=== PATIENT | female | born 1945 | race Caucasian/White ===

== ENCOUNTER 2017-10-25 18:38 | Observation (INO) ==
--- NOTE | 2017-10-25 18:59 | Emergency Department Note ---
Disposition Clinical Impression: Shortness of breath Anemia Qualifiers: Anemia type: iron deficiency Iron deficiency anemia type: unspecified iron deficiency Qualified Code(s): D50.9 - Iron deficiency anemia, unspecified Disposition: Admitted As Inpatient Condition: Undetermined Forms: ED Satisfaction Letter, Work/School Release Time of Disposition: 19:58 (Dr Reeves accepted pt and in the interim we are goinfg to transfuse two units, pros and cons d/c with patient) Weakness HPI - General Chief complaint: ED General Medical Stated complaint: anemia Source: patient, EMS, other Mode of arrival: EMS Limitations: no limitations Nursing Notes Reviewed: Yes Vital Signs Reviewed: Yes - History of Present Illness HPI Narrative: Patient is a pleasant 71-year-old female with past medical history significant for 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 We received a call from the nurse practitioner at the urgent care who stated that at rapid hemoglobin was 7.1 and patient very symptomatic. Patient states that she missed several iron transfusion and was supposed to get one last March and monthly B12 injection. She denies any bleeding from any orifice. She admits eating healthy high protein meat diet. Other than the malaise, fatigue and generalized weakness, patient denies any fever, chills or night sweats. Pt also denies any eye pain or visual disturbances. There is no sore throat, nasal drainages or facial congestion. There is no chest pain, palpitations or racing heart. Pt also denies any cough or chest congestion. There is no abdominal pain, nausea, vomiting or diarrhea. There is no urgency, frequency or dysuria. There is no muskulo-skeletal pain, arthralgia or back pain. Patient also denies any rash, edema or pruritus. There is no neurological manifestations, no headache, no vertigo or focal weakness. The patient also denies any anxiety, depression, hallucinations and has no homicidal or suicidal ideations. There is no polyuria , polydipsia or recent weight change. There is no easy bruising or bleeding. Review of other systems is otherwise negative except above. Pt Subjective Complaint: generalized weakness/fatigue, difficulty ambulating Onset (ago): day(s) Duration: gradually worsening Location: generalized - Related Data Home Medications Medication Instructions Recorded Confirmed Amlodipine [Norvasc] 10 mg PO DAILY 03/02/15 09/17/17 Losartan [Cozaar] 25 mg PO DAILY 03/02/15 09/17/17 Metoprolol [Lopressor] 50 mg PO BID 03/02/15 09/17/17 Zolpidem [Ambien] 10 mg PO HS 03/02/15 09/17/17 Gabapentin [Neurontin] 300 mg PO HS 09/25/16 09/17/17 Previous Rx's Medication Instructions Recorded Cholecalciferol (Vitamin D3) 50,000 unit PO QWEEK #12 capsule 04/09/17 [Vitamin D3] Allergies Allergy/AdvReac Type Severity Reaction Status Date / Time No Known Allergies Allergy Verified 12/01/14 07:48 All systems ED: reviewed and negative except as stated. Review of Systems: As Per HPI Constitutional: Reports: weakness. Denies: fever, chills Eyes: Denies: eye pain, eye discharge ENT ED: Denies: ear pain, throat pain Cardiovascular: Reports: dyspnea on exertion. Denies: chest pain, palpitations Respiratory: Reports: dyspnea. Denies: cough, wheezes Gastrointestinal: Denies: abdominal pain, nausea, vomiting Genitourinary: Denies: urgency, dysuria, frequency Musculoskeletal: Denies: back pain, neck pain, joint swelling Integumentary: Denies: rash, abrasion, lesions Neurological: Reports: weakness. Denies: headache Psychiatric: Denies: anxiety, depression Endocrine: Reports: fatigue Past Medical History - Past Medical History Medical history: Reports: arthritis, asthma, GERD, hypertension, migraine, other Surgical history: Reports: knee replacement (Left), orthopedic, other, other Psychiatric history: Reports: anxiety, depression - Social History Smoking Status: Never smoker Smokeless Tobacco Status: No Alcohol use: Reports: none Drug use: Reports: none Physical Exam - General Limitations: no limitations General appearance: alert, in no apparent distress, other (Ill looking but not toxic) - Head Head exam: atraumatic, normocephalic, normal inspection - Eye Eye exam: Present: normal appearance, PERRL, EOMI - Expanded Eye Exam Pupils: Left: reactive - ENT ENT exam: normal exam, normal oropharynx, mucous membranes moist - Expanded ENT Exam External ear exam: Present: normal external inspection Mouth exam: Present: normal external inspection Teeth exam: Present: normal inspection Throat exam: Present: normal inspection - Neck Neck exam: Present: normal inspection, full ROM, trachea midline - Chest Chest inspection: Present: normal inspection, symmetric chest wall rise - Respiratory Respiratory exam: Present: normal lung sounds bilaterally - Cardiovascular Cardiovascular exam: Present: regular rate, normal rhythm, normal heart sounds - Abdominal Exam Abdominal exam: Present: soft, Non-Tender. Absent: tenderness, distention, guarding, rebound, rigidity - Extremities Exam Extremities exam: Present: normal inspection, full ROM. Absent: tenderness, pedal edema - Expanded Upper Extremity Exam Shoulder exam: Present: normal inspection, full ROM Arm exam: Present: normal inspection, full ROM Elbow exam: Present: normal inspection, full ROM Forearm/Wrist exam: Present: normal inspection, full ROM Hand exam: Present: normal inspection, full ROM Vascular exam: Normal: capillary refill, radial pulse - Expanded Lower Extremity Exam Hip/Pelvis exam: Present: normal inspection, full ROM Upper leg exam: Present: normal inspection, full ROM Knee exam: Present: normal inspection, full ROM Lower leg exam: Present: normal inspection, full ROM Ankle exam: Present: normal inspection, full ROM Foot/toe exam: Present: normal inspection, full ROM Neurovascular/Tendon exam: Absent: motor deficit, sensory deficit, tendon deficit - Back Exam Back exam: Present: normal inspection, full ROM. Absent: tenderness - Neurological Exam Neurological exam: Present: alert, oriented X3 - Expanded Neurological Exam Patient oriented to: Present: person, place, time Coma Scale Eye Opening: Spontaneous Coma Scale Motor Response: Obeys Commands Coma Scale Verbal Response: Oriented Coma Scale Total: 15 - Psychiatric Psychiatric exam: Present: normal affect, normal mood - Skin Skin exam: Present: warm, dry, intact, normal color, pallor Course Vital Signs Temperature 98.0 F 10/25/17 18:40 Pulse Rate 64 10/25/17 18:40 Respiratory Rate 20 10/25/17 18:40 Blood Pressure 115/99 10/25/17 18:40 O2 Sat by Pulse Oximetry 94 10/25/17 18:40 Temperature 98.0 F 10/25/17 18:40 Pulse Rate 61 10/25/17 19:03 Respiratory Rate 17 10/25/17 19:03 Blood Pressure 115/99 10/25/17 19:03 O2 Sat by Pulse Oximetry 94 10/25/17 19:03 Oxygen Delivery Oxygen Delivery Room Air Weakness - Differential Diagnosis Differential Diagnosis: Likely: anemia, hypoglycemia, sepsis/infection, dehydration, medication effect - Medical Records Medical records reviewed: Yes I reviewed the patient's medical records. - Lab Data Lab results reviewed: Yes I reviewed the patient's lab results. Result diagrams: 10/25/17 19:05 10/25/17 19:05 Lab Results 10/25/17 10/25/17 10/25/17 Range/Units 19:05 19:05 19:05 WBC 5.8 (4.3-11.1) K/mcL RBC 2.28 L (3.82-4.97) M/mcL Hgb 6.9 L (11.5-15.4) g/dL Hct 22.2 L (35.3-44.9) % MCV 97.4 (83.0-100.0) fL MCH 30.3 (28.0-33.3) pg MCHC 31.1 L (31.6-35.5) g/dL RDW 17.0 H (11.5-14.5) % Plt Count 408 H (140-400) K/mcL MPV 9.0 L (9.4-12.4) fL Immature Gran % 0.3 (0-4) % Seg Neutrophils % 63.6 % Lymphocytes % 23.8 % Monocytes % 8.4 % Eosinophils % 3.4 % Basophils % 0.5 % Neutrophils # 3.7 (1.6-8.9) K/mcL Lymphocytes # 1.4 (0.6-4.6) K/mcL Monocytes # 0.5 (0.0-1.3) K/mcL Eosinophils # 0.2 (0.0-0.6) K/mcL Basophils # 0.0 (0.0-0.2) K/mcL PT 12.1 (9.4-12.1) Seconds INR 1.1 Sodium 140 (136-145) mEq/L Potassium 4.6 (3.5-5.1) mEq/L Chloride 108 H (98-107) mEq/L Carbon Dioxide 25 (23-29) mEq/L BUN 24 H (8-23) mg/dL Creatinine 1.11 (0.60-1.20) mg/dL Est GFR ( Amer) 59 L (> 60) Est GFR (Non-Af Amer) 49 L (> 60) BUN/Creatinine Ratio 22 (6-26) Glucose 117 H (70-105) mg/dL Calculated Osmolality 295 (280-300) Calcium 8.8 (8.6-10.3) mg/dL Magnesium 2.5 (1.6-2.6) mg/dL Total Bilirubin 0.2 L (0.3-1.0) mg/dL AST 14 (13-39) Units/L ALT 8 (7-52) Units/L Alkaline Phosphatase 81 (34-104) Units/L Creatine Kinase 61 (30-223) Units/L Troponin I < 0.03 (< 0.04) ng/mL Serum Total Protein 6.1 L (6.4-8.9) g/dL Albumin 3.5 (3.5-5.7) g/dL Globulin 2.6 (2.4-3.5) g/dL Albumin/Globulin Ratio 1.3 (1.1-2.2) - Radiology Data Radiology results reviewed: Yes I reviewed the patient's radiology results. - EKG Data EKG attestation: Yes I reviewed and interpreted this EKG.
[2017-10-25 19:13] LABS: Basophils % 0.5 %; Eosinophils # 0.2 K/mcL (0.0-0.6); Eosinophils % 3.4 %; Hematocrit 22.2 % (35.3-44.9); Hemoglobin 6.9 g/dL (11.5-15.4); Immature Granulocytes % 0.3 % (0-4); Lymphocytes # 1.4 K/mcL (0.6-4.6); Lymphocytes % 23.8 %; Mean Corpuscular HGB Conc 31.1 g/dL (31.6-35.5); Mean Corpuscular Hemoglobin 30.3 pg (28.0-33.3); Mean Corpuscular Volume 97.4 fL (83.0-100.0); Monocytes # 0.5 K/mcL (0.0-1.3); Monocytes % 8.4 %; Neutrophils # 3.7 K/mcL (1.6-8.9); Platelet Count 408 K/mcL (140-400); Red Blood Count 2.28 M/mcL (3.82-4.97); Segmented Neutrophils % 63.6 %
[2017-10-25 19:21] LABS: INR 1.1; Prothrombin Time 12.1 Seconds (9.4-12.1)
[2017-10-25 19:33] LABS: Alanine Aminotransferase 8 Units/L (7-52); Albumin 3.5 g/dL (3.5-5.7); Albumin/Globulin Ratio 1.3 (1.1-2.2); Alkaline Phosphatase 81 Units/L (34-104); Aspartate Amino Transferase 14 Units/L (13-39); BUN/Creatinine Ratio 22 (6-26); Bilirubin,Total 0.2 mg/dL (0.3-1.0); Blood Urea Nitrogen 24 mg/dL (8-23); Calcium 8.8 mg/dL (8.6-10.3); Carbon Dioxide 25 mEq/L (23-29); Chloride 108 mEq/L (98-107); Creatine Kinase 61 Units/L (30-223); Globulin 2.6 g/dL (2.4-3.5); Glucose 117 mg/dL (70-105); Magnesium 2.5 mg/dL (1.6-2.6); Osmolality,Calculated 295 (280-300); Potassium 4.6 mEq/L (3.5-5.1); Sodium 140 mEq/L (136-145); Total Protein 6.1 g/dL (6.4-8.9); Troponin I < 0.03 ng/mL (< 0.04); eGFR For African Americans 59 (> 60); eGFR For Non-African Americans 49 (> 60)
[2017-10-25] MEDS ORDERED: Naloxone 0.4 MG/ML INJ IVP PRN ×2 (20:04→20:52)
[2017-10-25 20:51] LABS: Bilirubin,Urine Negative (Negative); Blood,Urine Negative (Negative); Clarity,Urine Clear (Clear); Color,Urine Yellow (Yellow); Glucose,Urine (UA) Normal (Normal); Ketones,Urine Negative (Negative); Leukocyte Esterase,Urine Negative (Negative); Nitrite,Urine Negative (Negative); Protein,Urine Negative (Neg-Trace); Urobilinogen,Urine Normal (Normal)
[2017-10-25] MEDS ORDERED: NON-FORMULARY MEDICATION 1 EACH EACH (Cholecalciferol (Vitamin D3) [Vitamin D3] 50,000 UNI PO SCH (20:52)
[2017-10-25] MEDS ORDERED: Gabapentin 300 MG CAPSULE PO SCH (21:00)
[2017-10-25] MEDS ORDERED: 0.9 % Sodium Chloride 250 ML ONE (22:05)
[2017-10-26] MEDS: *HR* HYDROcodone/Acet 5/325 mg TABLET PO PRN ×2 (06:52→11:06)
[2017-10-26 07:12] LABS: Basophils % 0.7 %; Eosinophils # 0.3 K/mcL (0.0-0.6); Eosinophils % 4.9 %; Hemoglobin 7.2 g/dL (11.5-15.4); Immature Granulocytes % 0.2 % (0-4); Lymphocytes # 1.7 K/mcL (0.6-4.6); Lymphocytes % 28.2 %; Mean Corpuscular HGB Conc 31.3 g/dL (31.6-35.5); Mean Corpuscular Hemoglobin 29.6 pg (28.0-33.3); Mean Corpuscular Volume 94.7 fL (83.0-100.0); Mean Platelet Volume 9.1 fL (9.4-12.4); Monocytes # 0.7 K/mcL (0.0-1.3); Monocytes % 11.1 %; Neutrophils # 3.2 K/mcL (1.6-8.9); Platelet Count 350 K/mcL (140-400); Red Blood Count 2.43 M/mcL (3.82-4.97); Red Cell Distribution Width 18.2 % (11.5-14.5); Segmented Neutrophils % 54.9 %
[2017-10-26 07:31] LABS: Alanine Aminotransferase 6 Units/L (7-52); Albumin/Globulin Ratio 1.3 (1.1-2.2); Alkaline Phosphatase 70 Units/L (34-104); Aspartate Amino Transferase 11 Units/L (13-39); BUN/Creatinine Ratio 22 (6-26); Bilirubin,Total 0.2 mg/dL (0.3-1.0); Blood Urea Nitrogen 18 mg/dL (8-23); Calcium 8.5 mg/dL (8.6-10.3); Carbon Dioxide 25 mEq/L (23-29); Chloride 109 mEq/L (98-107); Globulin 2.4 g/dL (2.4-3.5); Glucose 94 mg/dL (70-105); Osmolality,Calculated 290 (280-300); Potassium 4.1 mEq/L (3.5-5.1); Sodium 139 mEq/L (136-145); Total Protein 5.4 g/dL (6.4-8.9); eGFR For African Americans > 60 (> 60); eGFR For Non-African Americans > 60 (> 60)
[2017-10-26 07:37] LABS: Activated Partial Thrombo Time 32.8 Seconds (26.0-36.0)
[2017-10-26 07:39] LABS: Prothrombin Time 11.1 Seconds (9.4-12.1)
[2017-10-26] MEDS ORDERED: amLODIPine 5 MG TABLET PO SCH (09:00)
--- NOTE | 2017-10-26 10:28 | Internal Med History&Physical ---
Date of Encounter: 10/26/17 Time of Encounter: 09:50 Assessment and Plan (1) Anemia Current visit: Yes Status: Acute Suspect due to B12 and iron deficiency. Anemia testing was ordered. She was also ordered 2 units packed red blood cells but only 1 unit was released because of shortage situation. She states she is now asymptomatic and wishes to be discharged. Qualifiers: Anemia type: iron deficiency Iron deficiency anemia type: unspecified iron deficiency Qualified Code(s): D50.9 - Iron deficiency anemia, unspecified (2) Vitamin B 12 deficiency Current visit: No Status: Chronic B12 level has returned low at 183. She will be given B12 injection. (3) JOSS (iron deficiency anemia) Current visit: No Status: Chronic Iron studies are pending. Qualifiers: Iron deficiency anemia type: other iron deficiency Qualified Code(s): D50.8 - Other iron deficiency anemias (4) Vitamin D deficiency Current visit: No Status: Chronic Vitamin D level has been ordered and is pending. (5) Hypertension Current visit: Yes Status: Chronic Continue Norvasc, Cozaar, and Lopressor Qualifiers: Hypertension type: essential hypertension Qualified Code(s): I10 - Essential (primary) hypertension Internal Medicine - H&P: HPI Chief complaint: Dyspnea and weakness Admitted From: Emergency Dept Plans for Post Hospital Care: Home History of present illness: Ms. Turner is a 71 year old female who came to emergency room stating she had increasing dyspnea and weakness for the past month. She states she has had discomfort in her chest both at rest and on exertion. She went to a local urgent care where blood work showed hemoglobin 7.1. She was referred to emergency room. She was evaluated in emergency room and found to have hemoglobin of 6.9. She was ordered blood transfusions and admitted to [facility] floor for ongoing care needs. She reports chronic anemia present since gastric bypass surgery 2003. She was ordered monthly B12 injections IM but states she has not had one since approximately February 2017 because she could not get to her hematology/ oncology visits. She also reports low iron but has not had iron infusion since fall 2016 due to missed appointments without effort to follow-up. She reports colonoscopy and EGD with were unremarkable approximately 2011 to identify blood loss. She denies internal malignancies. Past Med Surg Social Fam HX - Past Medical History Medical history: arthritis, asthma, GERD, hypertension, migraine, other Additional medical history: anemia, hypoglycemia, ventricular tachacardia and bundel branch block Psychiatric history: anxiety, depression - Past Surgical History Surgical History: knee replacement, orthopedic, other, other Additional surgical history: gastric bypass, lumpectomy, benign. orif left femur, bilat carpel tunnel. Right leg - Social History Smoking Status: Never smoker Smokeless Tobacco Status: No Alcohol use: none Drug use: none Internal Medicine - H&P: Meds Amlodipine [Norvasc] 10 mg PO DAILY 03/02/15 [History] Losartan [Cozaar] 25 mg PO DAILY 03/02/15 [History] Metoprolol [Lopressor] 50 mg PO BID 03/02/15 [History] Zolpidem [Ambien] 10 mg PO HS 03/02/15 [History] Gabapentin [Neurontin] 300 mg PO TID 09/25/16 [History] 3 Allergy/AdvReac Type Severity Reaction Status Date / Time No Known Allergies Allergy Verified 12/01/14 07:48 All Systems PM: A 10-system review of systems was performed and is negative for pertinent findings except as documented above in the HPI. Review of systems: Gen.: She states her weight has decreased approximately 12 pounds in the last 6 months Cardiovascular: She has history of hypertension. She is uncertain if she has had a past PA. She reports negative heart cath on several occasions with her most recent in 2013. She has a cardiac dysrhythmia that she cannot specify details. She reports carotid ultrasound has shown right carotid plaque without surgical intervention done. She denies DVT or pulmonary embolus. Respiratory: She is a lifelong nonsmoker and has no known chronic lung disease GI: She has had cholecystectomy. She had gastric bypass surgery 2003 as per above. She denies disorders of her liver or exocrine pancreas : She denies hematuria dysuria or kidney stones Neurologic: She denies large distribution strokes or seizures. Endocrine: She reports occasional hypoglycemia. She denies diabetes or thyroid disease or hyperlipidemia Hematology/oncology: As per history of present illness Psychiatric: She has anxiety and depression. She thinks she also has PTSD. Muscle skeletal: She has DJD. She has had bilateral carpal tunnel surgeries, bilateral femur fractures, and left total knee replacement. She denies gout. - Constitutional Vitals: Temp Pulse Resp BP Pulse Ox 98.0 F 65 17 133/54 97 10/26/17 04:20 10/26/17 08:26 10/26/17 04:20 10/26/17 08:26 10/26/17 08:26 Exam: Gen.: She is a well-developed overweight female lying in bed who appears in no acute distress HEENT: Head is atraumatic and normocephalic. Eyes: EOMI. There is no scleral icterus. Mouth: Mucosa is moist. Neck: Supple and nontender. There is no thyromegaly or adenopathy noted. Heart: Regular without murmurs gallops or ectopics Lungs: No wheezes or crackles are heard. Abdomen: She has a healed midline abdominal scar. Abdomen is nontender to palpation. Extremities: There is no cyanosis edema or clubbing noted. Dorsalis pedis and posttibial pulses are trace to 1+ palpable bilaterally. Neurologic: Mental status: She is talkative and a good historian. Cranial nerves: Smile is symmetric. Forehead wrinkles bilaterally. Tongue protrudes midline. EOMI. Motor: There is no pronator drift. Cerebellar: Finger to nose is intact bilaterally. Skin: Warm and dry. She has multiple shallow excoriated areas she reports are due to scratching flea bites from having a cat in her house. Internal Med - H&P Results - Labs CBC & Chem 7: 10/26/17 07:00 10/26/17 07:00 Labs: Short CBC 10/26/17 Range/Units 07:00 WBC 5.9 (4.3-11.1) K/mcL Hgb 7.2 L (11.5-15.4) g/dL Hct 23.0 L (35.3-44.9) % Plt Count 350 (140-400) K/mcL Neutrophils # 3.2 (1.6-8.9) K/mcL BMP 10/26/17 07:00 Sodium 139 Potassium 4.1 Chloride 109 H Carbon Dioxide 25 BUN 18 Creatinine 0.83 Glucose 94 Calcium 8.5 L Liver Function 10/26/17 Range/Units 07:00 Total Bilirubin 0.2 L (0.3-1.0) mg/dL AST 11 L (13-39) Units/L ALT 6 L (7-52) Units/L Alkaline Phosphatase 70 (34-104) Units/L Albumin 3.0 L (3.5-5.7) g/dL
[2017-10-26] MEDS ORDERED: Cyanocobalamin (B-12) 1,000 MCG/ML VIAL IM ONE (10:33)
[2017-10-26] MEDS ORDERED: Ondansetron ODT 4 MG TAB.RAPDIS SL ONE (11:01)
--- NOTE | 2017-10-26 11:05 | Discharge Summary ---
Orders not resulted at time of discharge: Pending orders 10/26/17 10:20 Vitamin D 25 Hydroxy Routine Date of Encounter: 10/26/17 Time of Encounter: 09:50 - Discharge Diagnosis (1) Anemia Priority: Primary Status: Acute Qualifiers: Anemia type: iron deficiency Iron deficiency anemia type: unspecified iron deficiency Qualified Code(s): D50.9 - Iron deficiency anemia, unspecified (2) Vitamin B 12 deficiency Priority: Secondary Status: Chronic (3) JOSS (iron deficiency anemia) Priority: Secondary Status: Chronic Qualifiers: Iron deficiency anemia type: other iron deficiency Qualified Code(s): D50.8 - Other iron deficiency anemias (4) Vitamin D deficiency Priority: Secondary Status: Chronic (5) Hypertension Priority: Secondary Status: Chronic Qualifiers: Hypertension type: essential hypertension Qualified Code(s): I10 - Essential (primary) hypertension Hospital course: Ms. Turner is a 71 year old female who came to emergency room stating she had increasing dyspnea and weakness for the past month. She states she has had discomfort in her chest both at rest and on exertion. She went to a local urgent care where blood work showed hemoglobin 7.1. She was referred to emergency room. She was evaluated in emergency room and found to have hemoglobin of 6.9. She was ordered blood transfusions and admitted to [facility] for ongoing care needs. Initial orders were written by the emergency room physician. I saw her on October 26 and performed a history physical and discharge. She was ordered 2 units packed red blood cells by emergency room. Only one unit was released because of shortage of her blood type. She tolerated the 1 unit without difficulty and was asymptomatic by the time I saw her. She reported she was able to ambulate to the bathroom without symptoms. B12 level returned low at 183 and she was given a B12 injection. Iron studies and vitamin D level are pending at time of discharge. Her PCP and/or chairperson anesthesiology/oncologist can follow-up on this. She reports she is scheduled to see Dr. Panda tomorrow. She will follow with her PCP within 1 week. - Time Spent with Patient Total time spent providing and/or coordinating discharge services: - Discharge Medications Home Medications: Amlodipine [Norvasc] 10 mg PO DAILY 03/02/15 [History] Losartan [Cozaar] 25 mg PO DAILY 03/02/15 [History] Metoprolol [Lopressor] 50 mg PO BID 03/02/15 [History] Zolpidem [Ambien] 10 mg PO HS 03/02/15 [History] Gabapentin [Neurontin] 300 mg PO TID 09/25/16 [History] Allergies/Adverse Reactions: 3 Allergy/AdvReac Type Severity Reaction Status Date / Time No Known Allergies Allergy Verified 12/01/14 07:48 Date of admission: 10/25/17 20:09 Primary care physician: Elva Brown - Constitutional Vitals: Temp Pulse Resp BP Pulse Ox 98.0 F 65 17 133/54 97 10/26/17 04:20 10/26/17 08:26 10/26/17 04:20 10/26/17 08:26 10/26/17 08:26 - Patient Status Disposition: Home, Self-Care Condition: Undetermined - Discharge Instructions Follow Up With: Elva Brown, [facility] [Primary Care Provider] - 1 week - Diet and Activity Activity: resume usual activities as tolerated Diet: advance to your usual diet
[2017-10-26 11:10] VITALS: BP 112/55
[2017-10-26 11:39] LABS: Ferritin 9 ng/mL (10-120); Iron < 10 mcg/dL (50-170); Transferrin 296 mg/dL (203-362)
--- NOTE | 2017-10-26 18:48 | Electrocardiograph Report ---
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
== END 2017-10-26 13:02 | disposition home or self-care (01) ==
LOC: EMEROOPIK 18:38 → INPPIK 18:38
PROVIDERS: ADMIT Internal Medicine; ATTEND Internal Medicine

== ENCOUNTER 2018-01-24 19:52 | Inpatient (IN) ==
[2018-01-24 20:55] LABS: Basophils % 0.5 %; Eosinophils # 0.2 K/mcL (0.0-0.6); Eosinophils % 5.4 %; Hematocrit 18.2 % (35.3-44.9); Immature Granulocytes % 0.3 % (0-4); Lymphocytes # 1.3 K/mcL (0.6-4.6); Lymphocytes % 32.8 %; Mean Corpuscular HGB Conc 26.9 g/dL (31.6-35.5); Mean Corpuscular Hemoglobin 20.9 pg (28.0-33.3); Mean Corpuscular Volume 77.8 fL (83.0-100.0); Monocytes # 0.5 K/mcL (0.0-1.3); Monocytes % 12.3 %; Neutrophils # 1.9 K/mcL (1.6-8.9); Nucleated Red Blood Cells 0.5 /100 WBC (0); Platelet Count 334 K/mcL (140-400); Red Blood Count 2.34 M/mcL (3.82-4.97); Red Cell Distribution Width 18.5 % (11.5-14.5); Segmented Neutrophils % 48.7 %
[2018-01-24 20:57] LABS: Hemoglobin 4.9 g/dL (11.5-15.4)
[2018-01-24 21:02] LABS: INR 1.1; Prothrombin Time 12.8 Seconds (9.4-12.1)
[2018-01-24 21:05] LABS: Activated Partial Thrombo Time 33.9 Seconds (26.0-36.0)
[2018-01-24 21:09] LABS: Anisocytosis 1+ (Not Present); Hypochromasia Present (Not Present)
[2018-01-24 21:10] LABS: Microcytosis Present (Not Present); Polychromasia 1+ (Not Present)
[2018-01-24 21:11] LABS: Platelet Estimate Normal (Normal)
[2018-01-24 21:13] LABS: BUN/Creatinine Ratio 21 (6-26); Blood Urea Nitrogen 21 mg/dL (8-23); Calcium 8.7 mg/dL (8.6-10.3); Carbon Dioxide 23 mEq/L (23-29); Chloride 109 mEq/L (98-107); Glucose 100 mg/dL (70-105); Osmolality,Calculated 291 (280-300); Potassium 4.3 mEq/L (3.5-5.1); Sodium 139 mEq/L (136-145); eGFR For Non-African Americans 54 (> 60)
--- NOTE | 2018-01-24 21:22 | Emergency Department Note ---
Disposition Clinical Impression: Dyspnea on exertion Anemia Qualifiers: Anemia type: unspecified type Qualified Code(s): D64.9 - Anemia, unspecified Disposition: Admitted As Inpatient Condition: Fair Referrals: Elva Brown CNP [Primary Care Provider] - Forms: ED Satisfaction Letter Time of Disposition: 21:27 Weakness HPI - General Chief complaint: ED Weakness Stated complaint: weakness Time Seen by Provider: 01/24/18 20:20 Source: patient Mode of arrival: private vehicle Limitations: physical limitation Nursing Notes Reviewed: Yes Vital Signs Reviewed: Yes - History of Present Illness Pt Subjective Complaint: generalized weakness/fatigue Onset (ago): week(s) (Several weeks) Duration: constant, gradually worsening Location: generalized Pain Severity: none Pain Scale: 0 Improves with: none Worsens with: exertion Context: history of similar (A she has a history of recurrent anemia ever since having gastric bypass surgery. When she gets anemic she develops symptoms just like this.) Associated symptoms: Reports: chest pain (Chest tightness with exertion), shortness of breath (Dyspnea with exertion). Denies: dark stools - Related Data Home Medications Medication Instructions Recorded Confirmed Amlodipine [Norvasc] 10 mg PO DAILY 03/02/15 01/24/18 Losartan [Cozaar] 25 mg PO DAILY 03/02/15 01/24/18 Metoprolol [Lopressor] 50 mg PO BID 03/02/15 01/24/18 Zolpidem [Ambien] 10 mg PO HS 03/02/15 01/24/18 Gabapentin [Neurontin] 300 mg PO TID 09/25/16 01/24/18 Allergies Allergy/AdvReac Type Severity Reaction Status Date / Time No Known Allergies Allergy Verified 12/01/14 07:48 All systems ED: reviewed and negative except as stated. Constitutional: Denies: fever, chills ENT ED: Denies: ear pain, throat pain, congestion Cardiovascular: Reports: chest pain, dyspnea on exertion. Denies: palpitations Respiratory: Reports: dyspnea. Denies: cough Gastrointestinal: Denies: abdominal pain, nausea, vomiting, diarrhea, melena, hematochezia Genitourinary: Denies: urgency, dysuria Integumentary: Denies: rash Neurological: Reports: weakness (Generalized). Denies: headache Past Medical History - Past Medical History Attestation: Yes The following information was validated with the patient. Source: patient, old records reviewed, nursing notes reviewed Medical history: Reports: arthritis, asthma, GERD, hypertension, migraine, other Surgical history: Reports: knee replacement, orthopedic, other, other Psychiatric history: Reports: anxiety, depression - Social History Smoking Status: Never smoker Smokeless Tobacco Status: No Alcohol use: Reports: none Drug use: Reports: none Physical Exam - General Limitations: physical limitation General appearance: alert, in no apparent distress - Head Head exam: atraumatic, normocephalic, normal inspection - Eye Eye exam: Present: normal appearance, PERRL, EOMI. Absent: scleral icterus, conjunctival injection (But conjunctiva are pale) - ENT ENT exam: normal exam, normal oropharynx, mucous membranes moist, normal external ear exam - Neck Neck exam: Present: normal inspection, full ROM - Chest Chest inspection: Present: normal inspection, symmetric chest wall rise. Absent : tenderness - Respiratory Respiratory exam: Present: normal lung sounds bilaterally. Absent: respiratory distress, wheezes - Cardiovascular Cardiovascular exam: Present: regular rate, normal rhythm, normal heart sounds - Abdominal Exam Abdominal exam: Present: soft, Non-Tender, normal bowel sounds - Extremities Exam Extremities exam: Present: normal inspection. Absent: pedal edema - Neurological Exam Neurological exam: Present: alert, oriented X3 - Psychiatric Psychiatric exam: Present: normal affect, normal mood - Skin Skin exam: Present: warm, dry. Absent: rash Course Course Narrative: Patient with a history of recurrent anemia giving a set of symptoms that certainly seems consistent with anemia. Clinically she is pale and certainly looks like she could be anemic. She has no history of GI bleeding and she gives no story of blood or black stool. I think this is a recurrence of her recurrent anemia issue. We will check her hemoglobin of his low she will need to be admitted for transfusion. I will check cardiac workup as well as other labs to see if there is other possible causes for her generalized weakness. - Reevaluation(s) Reevaluation #1: Hemoglobin was very low. Rest of the labs looked okay. I will talk to the hospitalist for admission. Time: 21:26 - Consultations Consultation #1: Dr. Reeves, hospitalist - I discussed the case with the hospitalist. He is accepted patient for admission to the hospitalist. We will transfuse 2 units Time: 21:26 Vital Signs Temperature 98.7 F 01/24/18 19:54 Pulse Rate 91 01/24/18 19:54 Respiratory Rate 16 01/24/18 19:54 Blood Pressure 162/70 01/24/18 19:54 O2 Sat by Pulse Oximetry 98 01/24/18 19:54 Temperature 98.7 F 01/24/18 19:54 Pulse Rate 91 01/24/18 19:54 Respiratory Rate 16 01/24/18 19:54 Blood Pressure 162/70 01/24/18 19:54 O2 Sat by Pulse Oximetry 98 01/24/18 19:54 Oxygen Delivery Oxygen Delivery Room Air Weakness - Medical Records Medical records reviewed: Yes I reviewed the patient's medical records. - Lab Data Lab results reviewed: Yes I reviewed the patient's lab results. Result diagrams: 01/24/18 20:44 01/24/18 20:44 Lab Results 01/24/18 01/24/18 01/24/18 Range/Units 20:44 20:44 20:44 WBC 3.9 L (4.3-11.1) K/mcL RBC 2.34 L (3.82-4.97) M/mcL Hgb 4.9 L* (11.5-15.4) g/dL Hct 18.2 L (35.3-44.9) % MCV 77.8 L (83.0-100.0) fL MCH 20.9 L (28.0-33.3) pg MCHC 26.9 L (31.6-35.5) g/dL RDW 18.5 H (11.5-14.5) % Plt Count 334 (140-400) K/mcL MPV 10.0 (9.4-12.4) fL Immature Gran % 0.3 (0-4) % Seg Neutrophils % 48.7 % Lymphocytes % 32.8 % Monocytes % 12.3 % Eosinophils % 5.4 % Basophils % 0.5 % Neutrophils # 1.9 (1.6-8.9) K/mcL Lymphocytes # 1.3 (0.6-4.6) K/mcL Monocytes # 0.5 (0.0-1.3) K/mcL Eosinophils # 0.2 (0.0-0.6) K/mcL Basophils # 0.0 (0.0-0.2) K/mcL Nucleated RBCs/100 WBC 0.5 H (0) /100 WBC Platelet Estimate Normal (Normal) Polychromasia 1+ A (Not Present) Hypochromasia Present A (Not Present) Anisocytosis 1+ A (Not Present) Microcytosis Present A (Not Present) PT 12.8 H (9.4-12.1) Seconds INR 1.1 APTT 33.9 (26.0-36.0) Seconds Sodium 139 (136-145) mEq/L Potassium 4.3 (3.5-5.1) mEq/L Chloride 109 H (98-107) mEq/L Carbon Dioxide 23 (23-29) mEq/L BUN 21 (8-23) mg/dL Creatinine 1.01 (0.60-1.20) mg/dL Est GFR ( Amer) > 60 (> 60) Est GFR (Non-Af Amer) 54 L (> 60) BUN/Creatinine Ratio 21 (6-26) Glucose 100 (70-105) mg/dL Calculated Osmolality 291 (280-300) Calcium 8.7 (8.6-10.3) mg/dL Troponin I (< 0.04) ng/mL 01/24/18 Range/Units 20:44 WBC (4.3-11.1) K/mcL RBC (3.82-4.97) M/mcL Hgb (11.5-15.4) g/dL Hct (35.3-44.9) % MCV (83.0-100.0) fL MCH (28.0-33.3) pg MCHC (31.6-35.5) g/dL RDW (11.5-14.5) % Plt Count (140-400) K/mcL MPV (9.4-12.4) fL Immature Gran % (0-4) % Seg Neutrophils % % Lymphocytes % % Monocytes % % Eosinophils % % Basophils % % Neutrophils # (1.6-8.9) K/mcL Lymphocytes # (0.6-4.6) K/mcL Monocytes # (0.0-1.3) K/mcL Eosinophils # (0.0-0.6) K/mcL Basophils # (0.0-0.2) K/mcL Nucleated RBCs/100 WBC (0) /100 WBC Platelet Estimate (Normal) Polychromasia (Not Present) Hypochromasia (Not Present) Anisocytosis (Not Present) Microcytosis (Not Present) PT (9.4-12.1) Seconds INR APTT (26.0-36.0) Seconds Sodium (136-145) mEq/L Potassium (3.5-5.1) mEq/L Chloride (98-107) mEq/L Carbon Dioxide (23-29) mEq/L BUN (8-23) mg/dL Creatinine (0.60-1.20) mg/dL Est GFR ( Amer) (> 60) Est GFR (Non-Af Amer) (> 60) BUN/Creatinine Ratio (6-26) Glucose (70-105) mg/dL Calculated Osmolality (280-300) Calcium (8.6-10.3) mg/dL Troponin I < 0.03 (< 0.04) ng/mL
[2018-01-24] MEDS ORDERED: Naloxone 0.4 MG/ML INJ IVP PRN (22:07)
[2018-01-24 22:31] LABS: Bilirubin,Urine Small (Negative); Blood,Urine Negative (Negative); Clarity,Urine Clear (Clear); Color,Urine Yellow (Yellow); Glucose,Urine (UA) Normal (Normal); Ketones,Urine Trace mg/dL (Negative); Leukocyte Esterase,Urine Trace (Negative); Nitrite,Urine Negative (Negative); PH,Urine 5.5 pH Units (5.0-8.0); Protein,Urine Negative (Neg-Trace); Specific Gravity,Urine 1.025 (1.010-1.025); Urobilinogen,Urine Normal (Normal)
[2018-01-24] MEDS ORDERED: 0.9 % Sodium Chloride 250 ML ONE ×2 (22:41→22:42)
[2018-01-24] MEDS: Ibuprofen 600 MG TABLET PO PRN (22:42)
[2018-01-24 23:17] LABS: Hyaline Casts,Urine Many per lpf (None-Few); Squamous Epithelial Cell,Urine Many per lpf (None-Few)
[2018-01-24 23:18] LABS: Mucus,Urine Moderate (Few); RBC,Urine 0-3 per hpf (0-3); WBC,Urine 0-3 per hpf (0-3)
[2018-01-24 23:19] LABS: Bacteria,Urine Moderate per hpf (None-Few)
[2018-01-25 07:10] LABS: Hemoglobin 6.1 g/dL (11.5-15.4); Mean Corpuscular Hemoglobin 23.2 pg (28.0-33.3); Mean Corpuscular Volume 79.8 fL (83.0-100.0); Mean Platelet Volume 10.4 fL (9.4-12.4); Platelet Count 291 K/mcL (140-400); Red Blood Count 2.63 M/mcL (3.82-4.97); Red Cell Distribution Width 19.4 % (11.5-14.5)
[2018-01-25] MEDS: Ibuprofen 600 MG TABLET PO PRN (08:52)
[2018-01-25] MEDS: Gabapentin 300 MG CAPSULE PO SCH ×3 (08:53→21:27)
[2018-01-25] MEDS: amLODIPine 5 MG TABLET PO SCH (08:53)
--- NOTE | 2018-01-25 10:50 | Internal Med History&Physical ---
Date of Encounter: 01/25/18 Time of Encounter: 10:05 Assessment and Plan (1) Anemia Current visit: Yes Status: Acute Suspect ongoing vitamin B12 and iron deficiency. She received 2 units of packed red blood cells in emergency room. Hemoglobin has risen to 6.1. She will be given 2 additional of packed red blood cells. Anemia testing will be ordered. Iron dextran has been ordered. She will likely need B12 injection also. Qualifiers: Anemia type: unspecified type Qualified Code(s): D64.9 - Anemia, unspecified (2) JOSS (iron deficiency anemia) Current visit: No Status: Chronic As above Qualifiers: Iron deficiency anemia type: other iron deficiency Qualified Code(s): D50.8 - Other iron deficiency anemias (3) Vitamin B 12 deficiency Current visit: No Status: Chronic As above (4) Vitamin D deficiency Current visit: No Status: Chronic Vitamin D level was low at 18 on 03/27/2017. Recheck. (5) Hypertension Current visit: No Status: Chronic Continue Lopressor, Cozaar, and Norvasc. Qualifiers: Hypertension type: essential hypertension Qualified Code(s): I10 - Essential (primary) hypertension Internal Medicine - H&P: HPI Chief complaint: Dyspnea, weakness Admitted From: Emergency Dept Plans for Post Hospital Care: Home History of present illness: Ms. Turner is a 72 year old female who came to emergency room stating she had increased dyspnea and weakness over the past few weeks. She also noticed discomfort in her chest on exertion. She had previous similar episodes when she was severely anemic. She came to emergency room and was evaluated and was found to have hemoglobin of 4.9. She was admitted to [facility] floor for ongoing care needs. She was hospitalized last at [facility] October 2017 with similar complaints. Anemia testing was ordered and B12 level returned low at 183 and she was given a B12 injection prior to discharge. Iron studies were pending at time of discharge but she stated she was going to see her section gang worker/oncologist the next day. She reports she completed that visit but no review was done of lab work from the previous day and she has not followed up again with her PCP or section gang worker/ oncologist since then. Iron studies results from that visit were iron < 10, transferrin 296, and ferritin 9. She reports chronic anemia present since gastric bypass surgery 2003. She required monthly B12 injections but these stopped 2017 because she did not regular ago to her hematology/oncology visit. She reports colonoscopy and EGD were unremarkable approximately 2011 to identify blood loss. She denies internal malignancies. Past Med Surg Social Fam HX - Past Medical History Medical history: arthritis, asthma, GERD, hypertension, migraine, other Additional medical history: anemia, hypoglycemia, ventricular tachacardia and bundle branch block Psychiatric history: anxiety, depression - Past Surgical History Surgical History: knee replacement, orthopedic, other, other Additional surgical history: gastric bypass, lumpectomy, benign. orif left femur, bilat carpel tunnel. Right leg - Social History Smoking Status: Never smoker Smokeless Tobacco Status: No Alcohol use: none Drug use: none Internal Medicine - H&P: Meds Amlodipine [Norvasc] 10 mg PO DAILY 03/02/15 [History] Losartan [Cozaar] 25 mg PO DAILY 03/02/15 [History] Metoprolol [Lopressor] 50 mg PO BID 03/02/15 [History] Zolpidem [Ambien] 10 mg PO HS 03/02/15 [History] Gabapentin [Neurontin] 300 mg PO TID 09/25/16 [History] 3 Allergy/AdvReac Type Severity Reaction Status Date / Time No Known Allergies Allergy Verified 12/01/14 07:48 All Systems PM: A 10-system review of systems was performed and is negative for pertinent findings except as documented above in the HPI. Review of systems: Review of systems from her October 2017 [facility] hospitalization were reviewed and revised as below. Gen.: Her weight has been stable at approximately 98 kg since October 2017 [facility] hospitalization. Cardiovascular: She has history of hypertension. She is uncertain if she has had a past NV. She reports negative heart cath on several occasions with her most recent in 2013. She reports history of ventricular tachycardia. She was on an antiarrhythmic at one-time but does not recall the specific name. It has been discontinued for unknown reasons. She reports carotid ultrasound has shown right carotid plaque without surgical intervention done. She denies heart failure DVT or pulmonary embolus. LVEF on Regadenoson EST 01/2016 was 68 % . Respiratory: She is a lifelong nonsmoker and has no known chronic lung disease GI: She has had cholecystectomy. She had gastric bypass surgery 2003 as per above. She denies disorders of her liver or exocrine pancreas : She denies hematuria dysuria or kidney stones Neurologic: She denies large distribution strokes or seizures. Endocrine: She reports occasional hypoglycemia. She denies diabetes or thyroid disease or hyperlipidemia Hematology/oncology: As per history of present illness Psychiatric: She has anxiety and depression. She thinks she also has PTSD. Muscle skeletal: She has DJD. She has had bilateral carpal tunnel surgeries, bilateral femur fractures, and left total knee replacement. She denies gout. - Constitutional Vitals: Temp Pulse Resp BP Pulse Ox 98.5 F 65 18 145/66 95 01/25/18 06:15 01/25/18 06:15 01/25/18 06:15 01/25/18 06:15 01/25/18 08:57 Exam: Gen.: She is a well-developed well-nourished female lying in bed who appears in no acute distress HEENT: Head is atraumatic and normocephalic. Eyes: EOMI. There is no scleral icterus. Mouth: Mucosa is moist. Neck: Supple and nontender. There is no thyromegaly or adenopathy noted. Heart: Regular without murmurs gallops or ectopics Lungs: No wheezes or crackles are heard. Abdomen: Soft and nontender. No masses or guarding are noted. Extremities: There is no cyanosis edema or clubbing noted. Dorsalis pedis and posterior tibial pulses are 1-2 over 2 bilaterally. Neurologic: Mental status: She is talkative and a good historian. Cranial nerves: Smile is symmetric. Forehead wrinkles bilaterally. Tongue protrudes midline. EOMI. Motor: There is no pronator drift. Cerebellar: Finger to nose is intact bilaterally. Skin: Warm and dry. She has multiple excoriations on her legs which she reports are due to scratching from flea bites from an indoor cat. Internal Med - H&P Results - Labs CBC & Chem 7: 01/25/18 06:45 01/24/18 20:44 Labs: Short CBC 01/25/18 Range/Units 06:45 WBC 3.9 L (4.3-11.1) K/mcL Hgb 6.1 L (11.5-15.4) g/dL Hct 21.0 L (35.3-44.9) % Plt Count 291 (140-400) K/mcL Urine 10/14/18 Range/Units 22:23 Urine Color Yellow (Yellow) Urine Clarity Clear (Clear) Urine pH 5.5 (5.0-8.0) pH Units Ur Specific [place] 1.025 (1.010-1.025) Urine Protein Negative (Neg-Trace) mg/dL Urine Glucose (UA) Normal (Normal) mg/dL
--- NOTE | 2018-01-25 11:07 | Electrocardiograph Report ---
[address] [place], [place] [address] Test Date: 2018-01-24 Pat Name: Rachael Turner Department: [id number] Room: [facility] Gender: F Client Experience Administrator: Eduard : 1945 Requested By: Darius Hodges Order Number: [id number] Reading MD: Delores Valera Measurements Intervals [place] Rate: 53 P: 55 GA: 253 QRS: -48 QRSD: 138 T: -13 QT: 473 QTc: 456 Interpretive Statements SINUS BRADYCARDIA WITH FIRST DEGREE AV BLOCK RIGHT BUNDLE BRANCH BLOCK LEFT ANTERIOR FASCICULAR BLOCK Electronically Signed On 01-25-2018 11:06:03 EDT by Delores Valera
[2018-01-25] MEDS ORDERED: Iron Dextran Complex 1,000 MG in 0.9 % Sodium Chloride 500 ML IVPB ONE (12:00)
[2018-01-25] MEDS ORDERED: 0.9 % Sodium Chloride 250 ML ONE ×2 (17:11→21:58)
[2018-01-25 17:34] LABS: % Iron Saturation 2 % (15-50); Iron 10 mcg/dL (50-170); Transferrin 325 mg/dL (203-362)
[2018-01-25 17:54] LABS: Ferritin < 8 ng/mL (10-120)
[2018-01-25 17:57] LABS: Folate 14.5 ng/mL (3.0-16.0)
[2018-01-25] MEDS ORDERED: Simethicone 80 MG TAB.CHEW PO PRN (18:08)
[2018-01-26 06:48] VITALS: BP 135/71
[2018-01-26 06:51] LABS: Eosinophils # 0.3 K/mcL (0.0-0.6); Hematocrit 26.2 % (35.3-44.9); Hemoglobin 7.8 g/dL (11.5-15.4); Immature Granulocytes % 0.2 % (0-4); Lymphocytes # 1.4 K/mcL (0.6-4.6); Mean Corpuscular HGB Conc 29.8 g/dL (31.6-35.5); Mean Corpuscular Hemoglobin 24.2 pg (28.0-33.3); Mean Corpuscular Volume 81.4 fL (83.0-100.0); Mean Platelet Volume 10.4 fL (9.4-12.4); Monocytes % 15.4 %; Neutrophils # 1.8 K/mcL (1.6-8.9); Nucleated Red Blood Cells 0.5 /100 WBC (0); Platelet Count 270 K/mcL (140-400); Red Blood Count 3.22 M/mcL (3.82-4.97); Red Cell Distribution Width 18.9 % (11.5-14.5); Segmented Neutrophils % 43.4 %
[2018-01-26 06:52] LABS: Monocytes # 0.7 K/mcL (0.0-1.3)
[2018-01-26 07:11] LABS: BUN/Creatinine Ratio 23 (6-26); Blood Urea Nitrogen 18 mg/dL (8-23); Calcium 8.6 mg/dL (8.6-10.3); Carbon Dioxide 23 mEq/L (23-29); Chloride 112 mEq/L (98-107); Glucose 86 mg/dL (70-105); Osmolality,Calculated 293 (280-300); Potassium 3.9 mEq/L (3.5-5.1); Sodium 141 mEq/L (136-145); eGFR For Non-African Americans > 60 (> 60)
[2018-01-26] MEDS: amLODIPine 5 MG TABLET PO SCH (08:29)
[2018-01-26] MEDS: Gabapentin 300 MG CAPSULE PO SCH (08:29)
[2018-01-26] MEDS ORDERED: Cyanocobalamin (B-12) 1,000 MCG/ML VIAL IM ONE (09:54)
--- NOTE | 2018-01-26 09:59 | Discharge Summary ---
Date of Encounter: 01/26/18 Time of Encounter: 09:50 - Discharge Diagnosis (1) Anemia Priority: Primary Status: Acute Qualifiers: Anemia type: unspecified type Qualified Code(s): D64.9 - Anemia, unspecified (2) JOSS (iron deficiency anemia) Priority: Secondary Status: Chronic Qualifiers: Iron deficiency anemia type: other iron deficiency Qualified Code(s): D50.8 - Other iron deficiency anemias (3) Vitamin B 12 deficiency Priority: Secondary Status: Chronic (4) Vitamin D deficiency Priority: Secondary Status: Chronic (5) Hypertension Priority: Secondary Status: Chronic Qualifiers: Hypertension type: essential hypertension Qualified Code(s): I10 - Essential (primary) hypertension Hospital course: Ms. Turner is a 72 year old female who came to emergency room stating she had increased dyspnea and weakness over the past few weeks. She also noticed discomfort in her chest on exertion. She had previous similar episodes when she was severely anemic. She came to emergency room and was evaluated and was found to have hemoglobin of 4.9. She was admitted to [facility] for ongoing care needs. Initial orders were written by the emergency room physician. I saw her on January 25 and performed the history and physical. She received a total of 4 units packed red blood cells. Hemoglobin mandi to 7.8 by day of discharge. Anemia testing showed iron 10, transferrin saturation 2%, transferrin 325, ferritin < 8 B12 184, and folate 14.5. She was given IV iron dextran infusion and B12 injection. She will continue with oral ferrous sulfate with vitamin C and oral B12 supplements at discharge. There were no other new problems and on January 26 she felt stable for discharge home. She will follow with her PCP Elva Brown within 1 week. - Time Spent with Patient Total time spent providing and/or coordinating discharge services: - Discharge Medications Prescriptions: Ascorbic Acid [Vitamin C] 500 mg PO DAILY #30 tablet Cholecalciferol (D-3) [Vitamin D] 1,000 unit PO DAILY #30 tablet Cyanocobalamin (B-12) [Vitamin B12] 1,000 mcg PO DAILY #30 tablet Ferrous Sulfate 325 mg PO DAILY #30 tablet Home Medications: Amlodipine [Norvasc] 10 mg PO DAILY 03/02/15 [History] Losartan [Cozaar] 25 mg PO DAILY 03/02/15 [History] Metoprolol [Lopressor] 50 mg PO BID 03/02/15 [History] Zolpidem [Ambien] 10 mg PO HS 03/02/15 [History] Gabapentin [Neurontin] 300 mg PO TID 09/25/16 [History] Ascorbic Acid [Vitamin C] 500 mg PO DAILY #30 tablet 01/26/18 [Rx] Cholecalciferol (D-3) [Vitamin D] 1,000 unit PO DAILY #30 tablet 01/26/18 [Rx] Cyanocobalamin (B-12) [Vitamin B12] 1,000 mcg PO DAILY #30 tablet 01/26/18 [Rx] Ferrous Sulfate 325 mg PO DAILY #30 tablet 01/26/18 [Rx] Allergies/Adverse Reactions: 3 Allergy/AdvReac Type Severity Reaction Status Date / Time No Known Allergies Allergy Verified 12/01/14 07:48 Date of admission: 01/25/18 12:29 Primary care physician: Elva Brown - Constitutional Vitals: Temp Pulse Resp BP Pulse Ox 98.3 F 53 16 135/71 97 01/26/18 06:47 01/26/18 06:47 01/26/18 06:47 01/26/18 06:47 01/26/18 08:30 - Patient Status Disposition: Home, Self-Care Condition: Fair - Discharge Instructions Follow Up With: Elva Brown, [employer] [Primary Care Provider] - 1 week - Diet and Activity Activity: resume usual activities as tolerated Diet: advance to your usual diet - VTE Documentation of Mechanical Device: Graduated compression elastic hosiery
== END 2018-01-26 11:30 | disposition home or self-care (01) | DRG 663 ==
LOC: INPPIK 19:52 → EMEROOPIK 19:52 → INPPIK 21:52
PROVIDERS: ADMIT Internal Medicine; ATTEND Internal Medicine

== ENCOUNTER 2020-04-21 12:54 | Observation (INO) ==
[2020-04-21 14:08] LABS: Basophils % 0.7 %; Eosinophils # 0.2 K/mcL (0.0-0.6); Eosinophils % 8.2 %; Hematocrit 23.3 % (35.3-44.9); Hemoglobin 6.5 g/dL (11.5-15.4); Immature Granulocytes % 0.4 % (0-4); Lymphocytes # 0.8 K/mcL (0.6-4.6); Lymphocytes % 27.3 %; Mean Corpuscular HGB Conc 27.9 g/dL (31.6-35.5); Mean Corpuscular Hemoglobin 22.3 pg (28.0-33.3); Mean Corpuscular Volume 80.1 fL (83.0-100.0); Mean Platelet Volume 9.5 fL (9.4-12.4); Monocytes # 0.3 K/mcL (0.0-1.3); Monocytes % 11.7 %; Neutrophils # 1.5 K/mcL (1.6-8.9); Platelet Count 269 K/mcL (140-400); Red Blood Count 2.91 M/mcL (3.82-4.97); Red Cell Distribution Width 18.8 % (11.5-14.5); Segmented Neutrophils % 51.7 %; White Blood Count 2.8 K/mcL (4.3-11.1)
[2020-04-21 14:23] LABS: BUN/Creatinine Ratio 13 (6-26); Blood Urea Nitrogen 9 mg/dL (8-23); Calcium 8.5 mg/dL (8.6-10.3); Carbon Dioxide 28 mEq/L (23-29); Chloride 106 mEq/L (98-107); Glucose 87 mg/dL (70-105); Osmolality,Calculated 288 (280-300); Potassium 3.8 mEq/L (3.5-5.1); Sodium 140 mEq/L (136-145); eGFR For African Americans > 60 (> 60); eGFR For Non-African Americans > 60 (> 60)
[2020-04-21 14:26] LABS: Anisocytosis 1+ (Not Present); Hypochromasia Present (Not Present); Macrocytosis Present (Not Present)
[2020-04-21 14:27] LABS: Troponin I < 0.03 ng/mL (< 0.04)
[2020-04-21] MEDS ORDERED: Isovue-370 500 ML BOTTLE IVP ONE (14:51)
[2020-04-21] MEDS ORDERED: Ondansetron 4 MG/2 ML VIAL IVP PRN (16:26)
[2020-04-21] MEDS ORDERED: Acetaminophen 325 MG TABLET PO PRN (16:26)
[2020-04-21] MEDS ORDERED: Naloxone 0.4 MG/ML INJ IVP PRN (16:26)
[2020-04-21] MEDS ORDERED: 0.9 % Sodium Chloride 250 ML IVC SCH (16:30)
[2020-04-21] MEDS: hydroCHLOROthiazide 25 MG TABLET PO SCH (18:23)
[2020-04-21] MEDS: amLODIPine 5 MG TABLET PO SCH (18:23)
[2020-04-21] MEDS: Gabapentin 100 MG CAPSULE PO SCH (20:37)
[2020-04-22 00:23] LABS: Basophils % 0.6 %; Eosinophils # 0.3 K/mcL (0.0-0.6); Eosinophils % 7.2 %; Immature Granulocytes % 0.3 % (0-4); Lymphocytes # 0.8 K/mcL (0.6-4.6); Lymphocytes % 23.2 %; Mean Corpuscular HGB Conc 28.4 g/dL (31.6-35.5); Mean Corpuscular Hemoglobin 23.1 pg (28.0-33.3); Mean Corpuscular Volume 81.2 fL (83.0-100.0); Monocytes # 0.4 K/mcL (0.0-1.3); Monocytes % 12.2 %; Platelet Count 260 K/mcL (140-400); Red Blood Count 3.08 M/mcL (3.82-4.97); Red Cell Distribution Width 18.6 % (11.5-14.5); Segmented Neutrophils % 56.5 %; White Blood Count 3.6 K/mcL (4.3-11.1)
[2020-04-22 00:25] LABS: Hemoglobin 7.1 g/dL (11.5-15.4)
[2020-04-22 00:43] LABS: Anisocytosis 1+ (Not Present); Hypochromasia Present (Not Present)
[2020-04-22 00:46] LABS: Polychromasia 1+ (Not Present)
[2020-04-22 00:47] LABS: Platelet Estimate Normal (Normal)
[2020-04-22 06:32] VITALS: BP 182/74
[2020-04-22 07:10] LABS: Basophils % 0.8 %; Eosinophils # 0.3 K/mcL (0.0-0.6); Eosinophils % 8.1 %; Hematocrit 26.5 % (35.3-44.9); Mean Corpuscular HGB Conc 29.4 g/dL (31.6-35.5); Mean Corpuscular Hemoglobin 23.8 pg (28.0-33.3); Mean Corpuscular Volume 80.8 fL (83.0-100.0); Mean Platelet Volume 9.9 fL (9.4-12.4); Monocytes # 0.5 K/mcL (0.0-1.3); Monocytes % 14.1 %; Platelet Count 241 K/mcL (140-400); Red Blood Count 3.28 M/mcL (3.82-4.97); Red Cell Distribution Width 18.2 % (11.5-14.5); White Blood Count 3.8 K/mcL (4.3-11.1)
[2020-04-22 07:12] LABS: Hemoglobin 7.8 g/dL (11.5-15.4)
[2020-04-22] MEDS: Gabapentin 100 MG CAPSULE PO SCH (07:28)
[2020-04-22] MEDS: amLODIPine 5 MG TABLET PO SCH (07:28)
[2020-04-22] MEDS: hydroCHLOROthiazide 25 MG TABLET PO SCH (07:28)
[2020-04-22] MEDS ORDERED: Venlafaxine XR (24 HR) 37.5 MG CAP.ER.24H PO SCH (09:00)
== END 2020-04-22 09:55 | disposition home or self-care (01) ==
LOC: EMEROOPIK 12:54 → INPPIK 12:54
PROVIDERS: ADMIT Family Medicine; ATTEND Family Medicine